=== PATIENT | female | born 1995 | race Caucasian/White ===

== ENCOUNTER 2025-01-30 15:38 | Emergency (ER) | payer MEDICAID, SELFPAY ==
[2025-01-30 15:45] VITALS: BP 138/92
--- NOTE | 2025-01-30 15:57 | ED.GENMED ---
History of Present Illness
General
Chief Complaint: Suicidal Ideation
Time Seen by Provider: 01/30/25 15:57
History of Present Illness
History of Present Illness:
FOCUSED PAST MEDICAL HISTORY
- The patient has history of anxiety/depression
REVIEW OF OLD RECORDS
- No old records available for review in [facility]
Note:
CHIEF COMPLAINT(S)
The patient presents with suicidal ideation and a history of recent mental health concerns.
HISTORY OF PRESENT ILLNESS
The patient is a 29-year-old female with a history of mental health issues, including anxiety, depression, and borderline personality disorder. She was recently referred to the emergency department from a partial hospitalization program at [facility]
due to ongoing suicidal thoughts. The patient reported that last night she had thoughts of running into traffic but instead contacted a crisis service for intervention. She has a history of a suicide attempt by overdosing on pills less than six
months ago but denies any recent overdose attempts. She has been hospitalized for mental health reasons before, most recently in October of this year at [place] for suicidal thoughts. The patient denies any current chest pain, abdominal pain, or use of
illicit drugs.
ADDITIONAL HISTORY OBTAINED FROM SOURCE OTHER THAN THE PATIENT
According to the patient, she was in contact with crisis workers who advised her to seek help today.
CHRONIC MEDICAL CONDITIONS SIGNIFICANTLY AFFECTING CARE
The patient has been diagnosed with anxiety, depression, and borderline personality disorder.
MEDICATIONS
The patient is currently taking Lamotrigine and Fluoxetine for her psychiatric conditions.
PHYSICAL EXAM
General: Alert, no acute distress. Elevated BMI
Skin: Warm, dry. Facial acne noted
Head: Normocephalic, atraumatic.
Neck: Supple, trachea midline.
Eyes, Ears, Nose, and Throat: Oral mucosa moist.
Cardiovascular: Normal peripheral perfusion, No edema.
Respiratory: Respirations are non-labored.
Gastrointestinal: Abdomen nondistended.
Back: Normal range of motion, Normal alignment.
Musculoskeletal: Normal range of motion, normal strength.
Neurological: Alert and oriented to person, place, time, and situation, No focal neurological deficit observed.
Psychiatric: Cooperative, appropriate mood & affect.
PROBLEM LIST
Acute:
- Suicidal ideation
- Recent suicide attempt (within the past six months)
Chronic:
- Anxiety
- Depression
- Borderline personality disorder
PLAN
Evaluate by crisis workers for assessment of mental health status and to develop a safety plan.
Consider psychiatric hospitalization if deemed necessary for patient safety.
Continue current medications for mental health management.
Provide appropriate referrals for continued psychiatric care and follow-up.
DIFFERENTIAL DIAGNOSIS
The Differential Diagnosis includes, in no particular order and is not limited to:
- Major depressive disorder
- Borderline personality disorder
- Generalized anxiety disorder
- Post-traumatic stress disorder
- Adjustment disorder with depressed mood
- Substance-induced mood disorder
- Bipolar disorder
- Schizoaffective disorder
- Acute stress reaction
- Personality disorder not otherwise specified
LABS
- UDS negative, Tylenol and aspirin negative, alcohol negative, CBC and chemistries unremarkable
UPDATE
- At 4:05 PM, I discussed with anayeli Henderson. She will see in consultation.
SUMMARY OF ENCOUNTER
The patient, a 29-year-old female with a history of mental health issues including anxiety, depression, and borderline personality disorder, presented to the emergency department with acute suicidal ideation. She had contacted a crisis service due
to her thoughts of self-harm. The patient was previously referred from a partial hospitalization program due to ongoing suicidal thoughts. In the emergency department, her condition was assessed, and a urine drug screen was performed, which returned
negative. Crisis workers were contacted to evaluate the need for psychiatric hospitalization.
DISPOSITION
Transfer to a psychiatric facility.
ASSESSMENT
The patient is at risk for self-harm given her acute suicidal ideation and recent history of a suicide attempt by overdosing on pills. Her ongoing mental health disorders include anxiety, depression, and borderline personality disorder, all of which
contribute to her current crisis.
PLAN
Transfer to a psychiatric facility for further evaluation, stabilization, and safety planning by mental health professionals.
MEDICAL DECISION MAKING
1. Number and Complexity of Problems Addressed: Chronic conditions affecting care - Anxiety, Depression, Borderline personality disorder. Differential diagnoses considered include major depressive disorder, generalized anxiety disorder,
post-traumatic stress disorder, adjustment disorder with depressed mood, substance-induced mood disorder, bipolar disorder, schizoaffective disorder, acute stress reaction, personality disorder not otherwise specified.
2. Data:
- Category 1: Reviewed results of the urine drug screen, which was entirely negative.
- Category 3: Discussion of management with crisis workers, who advised a transfer to a psychiatric facility for further care.
DIAGNOSIS
- Suicidal ideation, acute (ICD-10: R45.851)
- Major depressive disorder, recurrent severe (ICD-10: F33.2)
- Borderline personality disorder (ICD-10: F60.3)
- Generalized anxiety disorder (ICD-10: F41.1)
Phy Exam
Physical Exam
Physical Exam:
See HPI
Course
Orders/Labs/Results
Orders:
Orders
01/30/25 15:40
Crisis Consult Urgent
Reason for Consult: +SI
01/30/25 16:32
Test Result ONCE
01/30/25 16:37
Alcohol Urgent
Complete Blood Count/With Diff Urgent
Comprehensive Metabolic Panel Urgent
HCG, Serum Qualitative Screen Urgent
Salicylate Urgent
Tylenol [Acetaminophen] Urgent
01/30/25 19:55
Drug Screen, Urine [Urine Drug Abuse Screen] Urgent
Date Specimen was Collected: 01/30/25
Time Specimen was Collected: 19:53
01/30/25 20:17
ED Special Safety Observation ONCE
Observation level: One to Two
Abnormal Lab Results
01/30/25
16:37
MCHC 31.3 L g/dL
(33.0-37.0)
Abs Immat Gran (auto) 0.1 H 10^3/uL
(0-0.05)
Absolute Monos (auto) 0.8 H 10^3/uL
(0.1-0.6)
Immature Gran % 0.6 H %
(0-0.5)
ALT 56 H U/L
(0-35)
Salicylates < 1.0 L mg/dl
(2.0-20.0)
Acetaminophen < 10 L ug/ml
(10-30)
01/30/25 16:37
01/30/25 16:37
Vital Signs
Initial and Last Documented VS:
Initial Vital Signs
Temp Pulse Resp BP Pulse Ox
36.6 C 78 20 138/92 95
01/30/25 15:45 01/30/25 15:45 01/30/25 15:45 01/30/25 15:45 01/30/25 15:45
Last Documented Vital Signs
Temp Pulse Resp BP Pulse Ox
36.9 C 75 18 123/76 98
01/30/25 19:15 01/30/25 19:15 01/30/25 19:15 01/30/25 19:15 01/30/25 19:15
*Pulse Oximetry
SaO2: 95
Oxygen Mode of Delivery: Room air
Patient hypoxic: no
*Critical Care Note
Total Time (30-74mins, 75-104mins- exclusive of procedures): Not Applicable
ED Attending Note
-
Portions of this chart may have been created with voice recognition software.� Occasional wrong word or��sound alike� substitutions may have occurred due to the inherent limitations of voice recognition software.
Discharge Plan
Departure
Patient Disposition: Psych Facility
Date of Disposition: 01/30/25
Time of Disposition: 16:32
Discharge Problem:
Suicidal ideation
Prescriptions:
No Action
lamotrigine [Lamictal] 200 mg Tablet
200 mg PO DAILY
metoprolol tartrate 100 mg Tablet
100 mg PO BID
famotidine [Pepcid] 40 mg Tablet
40 mg PO HS
methylphenidate HCl [Concerta] 54 mg Tablet Extended Release 24hr
54 mg PO DAILY
fluvoxamine [Luvox] 100 mg Tablet
100 mg PO BID
pantoprazole 40 mg Tablet,Delayed Release (Dr/Ec)
40 mg PO DAILY
furosemide [Lasix] 20 mg Tablet
20 mg PO BID
topiramate [Topamax] 100 mg Tablet
100 mg PO BID
aripiprazole [Abilify] 20 mg Tablet
20 mg PO DAILY
Interventions
Interventions:
*Risk Screen - Suicide Last Done: 01/30/25 15:39
*General Assessment Last Done: 01/30/25 15:45
*Neglect/Abuse Screening Last Done: 01/30/25 16:20
ED-Psychological Assessment Last Done: 01/30/25 16:20
Discharge Date and Time
Print Language: SERBIAN
[2025-01-30 16:00] VITALS: BP 114/54
[2025-01-30 16:08] VITALS: BMI 68.8
[2025-01-30 16:43] LABS: Hematocrit 39.0 % (37.0-47.0); Hemoglobin 12.2 g/dL (12.0-16.0); Mean Corp Hgb Conc. 31.3 g/dL (33.0-37.0); Mean Corpuscular Volume 88.0 fL (81.0-99.0); Nucleated Red Blood Cells % 0 %; Platelet Count 266 10^3/uL (130-400); Red Cell Dist. Width 12.8 % (11.5-14.5)
[2025-01-30 16:58] LABS: HCG, Serum Qualitative Screen Negative
[2025-01-30 16:59] LABS: ALT (SGPT) 56 U/L (0-35); AST (SGOT) 35 U/L (14-36); Acetaminophen < 10 ug/ml (10-30); Albumin 3.8 g/dl (3.5-5.0); Alkaline Phosphatase 109 U/L (38-126); Blood Urea Nitrogen 12 mg/dl (7-17); Calcium 9.2 mg/dl (8.4-10.2); Carbon Dioxide 27 mmol/L (22-30); Chloride 106 mmol/L (98-107); Estimated Creatinine Clearance > 125 ml/min; Glucose 89 mg/dl (70-99); Potassium 4.2 mmol/L (3.5-5.1); Salicylate < 1.0 mg/dl (2.0-20.0); Sodium 137 mmol/L (135-145); Total Protein 7.2 g/dl (6.3-8.2); eGFR > 60.00
[2025-01-30 19:15] VITALS: BP 123/76
--- NOTE | 2025-01-30 21:58 | ED.ADDNOTE ---
ED Addendum
ED Addendum
ED Addendum Note:
The patient has been accepted at [facility] with plan transportation at 3 AM
[2025-01-31 00:47] VITALS: BP 107/54
== END 2025-01-31 02:45 ==
LOC: EMR 15:38
PROVIDERS: EMERGENCY PHYSICIAN Emergency Medicine
DX: R45.851 Suicidal ideations (principal); F41.9 Anxiety disorder, unspecified; F32.A Depression, unspecified; F60.3 Borderline personality disorder; Z91.51 Personal history of suicidal behavior
CPT/HCPCS: 99285; 80053; 80143; 80179; 80306; 82077; 84703; 85025